=== PATIENT | female | born 1980 | race Caucasian/White ===

== ENCOUNTER 2024-07-18 20:45 | Emergency (ER) | payer OTHER ==
[2024-07-18] MEDS ORDERED: Ketorolac Tromethamine 30 MG (1 mL) VIAL ONE (21:06)
[2024-07-18] MEDS ORDERED: Lidocaine 4% Patch ONE (21:06)
[2024-07-18] MEDS ORDERED: Sodium Chloride 0.9% 1,000 ML ONE (21:06)
[2024-07-18 21:18] LABS: BHCG - Serum Negative (NEGATIVE); Pregs Control Background? CLEAR/WHITE (CLR/WHITE); Pregs Control Bar Appear? YES (CONTROL BAR)
== END 2024-07-18 22:09 | disposition home or self-care (01) ==
LOC: MADERS 20:45
DX: S29.012A Strain of muscle and tendon of back wall of thorax, initial encounter (principal); S80.12XA Contusion of left lower leg, initial encounter; I10 Essential (primary) hypertension; V59.50XA Passenger in pick-up truck or van injured in collision with unspecified motor vehicles in traffic accident, initial encounter; W22.10XA Striking against or struck by unspecified automobile airbag, initial encounter
CPT/HCPCS: 71260; 74177; 84703; 96374; J1885; J7030